=== PATIENT | female | born 1930 | race Caucasian/White ===

== ENCOUNTER 2017-11-16 09:29 | Inpatient (IN) | payer OTHER, MEDICARE ==
[2017-11-16] VITALS (15 sets, daily range): BP systolic 62–147; BP diastolic 38–62; PULSE 84–122; RESP 16–19; TEMP 92.8–94.1; O2SAT 0–100
[2017-11-16] MEDS ORDERED: ceFAZolin 2 GM PREMIX 0 ML ONE (09:35)
[2017-11-16] MEDS ORDERED: DIPHTH/TETANUS/ACEL PERTUSSIS (BOOSTER) 0.5 ML VIAL/PFS IM ONE (09:41)
[2017-11-16] MEDS ORDERED: ONDANSETRON HCL 4 MG/2 ML VIAL ONE (09:49)
[2017-11-16 09:58] LABS: AUTOMATED NEUTROPHIL # 10.9 TH/MM3 (1.8-7.7); BASOPHIL # 0.1 TH/MM3 (0-0.2); BASOPHIL % 0.5 % (0.0-2.0); EOSINOPHIL # 0.3 TH/MM3 (0-0.4); HEMATOCRIT 29.4 % (35.0-46.0); HEMOGLOBIN 9.9 GM/DL (11.6-15.3); LYMPH % 16.2 % (9.0-44.0); LYMPHOCYTE # 2.4 TH/MM3 (1.0-4.8); MEAN CELL VOLUME 97.8 FL (80.0-100.0); MEAN CORPUSCULAR HGB CONC 33.8 % (32.0-36.0); MEAN PLATELET VOLUME 6.8 FL (7.0-11.0); MONO % 6.6 % (0.0-8.0); NEUT % 74.7 % (16.0-70.0); PLATELET COUNT 363 TH/MM3 (150-450); RED BLOOD COUNT 3.01 MIL/MM3 (4.00-5.30); RED CELL DISTRIBUTION WIDTH 13.7 % (11.6-17.2); WHITE BLOOD COUNT 14.6 TH/MM3 (4.0-11.0)
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
[2017-11-16 10:08] LABS: INTERNATIONAL NORMALIZED RATIO 1.1 RATIO; PROTHROMBIN TIME - PATIENT 11.2 SEC (9.8-11.6)
[2017-11-16] MEDS ORDERED: IOHEXOL 350 MG/ML 10 ML VIAL (for RAD DIAG) IVCONTRAST ONE (10:15)
[2017-11-16] MEDS ORDERED: LIDOCAINE HCL 1% PF 30 ML VIAL ONE (10:15)
[2017-11-16] MEDS ORDERED: MIDAZOLAM HCL 5 MG/ML VIAL (1 ML) ONE (10:17)
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
--- NOTE | 2017-11-16 11:07 | RADRPT ---
EXAM DATE/TIME: 11/16/2017 10:34 [facility] COMPARISON: CHEST SINGLE AP, November 16, 2017, 9:29. INDICATIONS : Post chest tube insertion MEDICAL HISTORY : None. SURGICAL HISTORY : None. ENCOUNTER: Subsequent ACUITY: 1 day PAIN SCORE: Non-responsive. LOCATION: Bilateral chest FINDINGS: Chest tube in good position on the left. Minimal subcutis air. Right lung clear. Complete cardiome jase. Multiple left rib fractures. CONCLUSION: Chest and good position. No pneumothorax. Erickson Sierra MD FACR on November 16, 2017 at 11:05 Board Certified Radiologist. This report was verified electronically.
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
[2017-11-16 11:36] LABS: HEMOGLOBIN 11.7 GM/DL (11.6-15.3)
[2017-11-16] MEDS ORDERED: fentaNYL CITRATE 250 MCG/5 ML AMP ONE (11:43)
[2017-11-16] MEDS ORDERED: KETAMINE HCL 500 MG/10 ML VIAL ONE (11:44)
[2017-11-16] MEDS ORDERED: ROCURONIUM INJ 50 MG/5 ML SYRINGE IV PUSH ONE (12:00)
[2017-11-16] MEDS ORDERED: SODIUM CHLORID 0.9% 500 ML INJ 500 ML IV ONE (12:00)
[2017-11-16] MEDS ORDERED: PHENYLEPHRINE HCL 10 MG/ML VIAL IV ONE (12:00)
[2017-11-16] MEDS ORDERED: NORMOSOL R INJ 1,000 ML IV ONE (12:00)
[2017-11-16] MEDS ORDERED: LIDOCAINE HCL 1% PF 5 ML SYRINGE OTHER ONE (12:00)
[2017-11-16] MEDS ORDERED: LACTATED RINGER'S 1000 ML INJ 1,000 ML IV ONE (12:00)
[2017-11-16] MEDS ORDERED: DEXAMETHASONE SOD PHOS 4 MG/ML VIAL IV ONE (12:00)
[2017-11-16] MEDS ORDERED: ONDANSETRON HCL 4 MG/2 ML VIAL IV ONE (12:00)
[2017-11-16] MEDS ORDERED: PHENYLEPH/NS 1000 MCG/10 ML SYR IV ONE (12:00)
[2017-11-16] MEDS ORDERED: ceFAZolin 2 GM PREMIX 50 ML ONE (12:58)
[2017-11-16] MEDS ORDERED: GENTAMICIN SULFATE 80 MG/2 ML VIAL ONE (12:59)
[2017-11-16] MEDS ORDERED: SODIUM CHLORIDE 0.9% FLUSH 10 ML FLUSH IV FLUSH PRN (13:45)
[2017-11-16] MEDS ORDERED: ONDANSETRON HCL 4 MG/2 ML VIAL IV PUSH PRN (13:45)
[2017-11-16] MEDS ORDERED: CHLORHEXIDINE GLUCONATE 2 % 1 PACK (2 CLOTHS) TOP PRN (13:45)
[2017-11-16] MEDS ORDERED: RESP: ALBUTEROL 2.5 MG/IPRATROPIUM 0.5 MG NEB (PRN) NEB (13:45)
[2017-11-16] MEDS ORDERED: ENALAPRILAT 1.25 MG/ML VIAL IV PUSH PRN (13:45)
[2017-11-16] MEDS ORDERED: MISCELLANEOUS NURSING INFORMATION XX SCH (13:45)
[2017-11-16] MEDS ORDERED: SODIUM CHLOR 0.9% 1000 ML INJ 1,000 ML IV SCH ×2 (14:00→21:30)
[2017-11-16] MEDS ORDERED: MORPHINE SULFATE 2 MG/ML SYRINGE IV PUSH PRN (14:15)
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
[2017-11-16] MEDS ORDERED: MIDAZOLAM 100 MG/100 ML INJ 100 ML IV PRN (14:30)
[2017-11-16] MEDS ORDERED: fentaNYL DRIP 250 ML IV PRN (14:30)
[2017-11-16] MEDS: METHOCARBAMOL 500 MG TAB PO SCH ×2 (14:30→22:00)
[2017-11-16] MEDS ORDERED: LIDOCAINE HCL 5% PATCH T-DERMAL SCH (14:30)
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
[2017-11-16] MEDS ORDERED: PANTOPRAZOLE SODIUM 40 MG VIAL IVP SCH (15:00)
--- NOTE | 2017-11-16 15:03 | RADRPT ---
EXAM DATE/TIME: 11/16/2017 14:19 [facility] COMPARISON: No previous studies available for comparison. INDICATIONS : Left ankle ex fix. MEDICAL HISTORY : None. SURGICAL HISTORY : None. ENCOUNTER: Subsequent ACUITY: 1 day PAIN SCORE: Non-responsive. LOCATION: Left Ankle. FINDINGS: 2 digital images are submitted. These reveal grossly satisfactory ankle alignment presumably associat ed with placement of external fixator. CONCLUSION: Satisfactory operative appearance Santosh Bliss MD on November 16, 2017 at 15:01 Board Certified Radiologist. This report was verified electronically.
[2017-11-16] MEDS ORDERED: PROPOFOL 500 MG/50 ML INJ 50 ML ONE (15:28)
[2017-11-16] MEDS ORDERED: POTASSIUM CHLOR 40 MEQ PREMIX 100 ML IV PRN ×2 (15:30)
[2017-11-16] MEDS ORDERED: SODIUM PHOSPHATE INJ 30 MMOL in SODIUM CHLOR 0.9% 250 ML INJ 240 ML IV PRN (15:30)
[2017-11-16] MEDS ORDERED: POTASSIUM PHOSPHATE MONOBASIC 500 MG TAB PO/TUBE PRN (15:30)
[2017-11-16] MEDS ORDERED: MAGNESIUM SULFATE INJ 2 GM in SODIUM CHLORIDE 0.9% INJ 96 ML IV PRN (15:30)
[2017-11-16] MEDS ORDERED: MAGNESIUM OXIDE 400 MG TAB PO PRN (15:30)
[2017-11-16] MEDS ORDERED: POTASSIUM CHLORIDE 25 MEQ EFFERVESCENT TAB PO PRN ×2 (15:30)
[2017-11-16] MEDS ORDERED: POTASSIUM CHLOR 20 MEQ PREMIX 100 ML IV PRN ×2 (15:30)
[2017-11-16] MEDS ORDERED: POTASSIUM PHOSPHATE MONOBASIC 500 MG TAB PO PRN (15:30)
[2017-11-16] MEDS ORDERED: POTASSIUM PHOSPHATE INJ 30 MMOL in SODIUM CHLOR 0.9% 250 ML INJ 250 ML IV PRN (15:30)
[2017-11-16] MEDS ORDERED: MAGNESIUM SULFATE INJ 4 GM in SODIUM CHLORIDE 0.9% INJ 92 ML IV PRN (15:30)
[2017-11-16] MEDS ORDERED: fentaNYL 2,500 MCG/NS 250 ML IV PRN (16:00)
[2017-11-16] MEDS ORDERED: MIDAZOLAM 100 MG/NS 100 ML DRIP Premix IV PRN (16:00)
[2017-11-16] MEDS: RESP: ALBUTEROL 2.5 MG/IPRATROPIUM 0.5 MG NEB (SCH) NEB ×2 (16:00→20:47)
[2017-11-16] MEDS ORDERED: TERBUTALINE INJ 1 MG/ML AMP SQ PRN (16:00)
[2017-11-16] MEDS ORDERED: NOREPINEPHRINE-DEXTROSE DRIP 250 ML IV ONE (16:01)
[2017-11-16] MEDS: NOREPINEPHRINE 4 MG/D5W 250 ML IV PRN ×2 (16:05→21:10)
[2017-11-16] MEDS: PHENYLEPHRINE 40 MG in D5W 500 ML IV PRN ×2 (16:15→19:04)
[2017-11-16 16:36] LABS: HEMATOCRIT 27.4 % (35.0-46.0); HEMOGLOBIN 9.2 GM/DL (11.6-15.3); MEAN CELL VOLUME 93.6 FL (80.0-100.0); MEAN CORPUSCULAR HEMOGLOBIN 31.3 PG (27.0-34.0); MEAN CORPUSCULAR HGB CONC 33.4 % (32.0-36.0); MEAN PLATELET VOLUME 6.7 FL (7.0-11.0); PLATELET COUNT 122 TH/MM3 (150-450); RED BLOOD COUNT 2.93 MIL/MM3 (4.00-5.30); RED CELL DISTRIBUTION WIDTH 15.9 % (11.6-17.2); WHITE BLOOD COUNT 12.6 TH/MM3 (4.0-11.0)
[2017-11-16] MEDS ORDERED: SODIUM BICARBONATE 8.4% INJ 50 MEQ/50 ML SYR ONE (17:00)
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
[2017-11-16] MEDS ORDERED: SODIUM BICARBONATE 8.4% INJ 50 MEQ/50 ML SYR IV ONE (17:30)
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
[2017-11-16] MEDS ORDERED: PHENYLEPHRINE 40 MG in D5W 500 ML IV PRN (18:00)
--- NOTE | 2017-11-16 18:26 | MP ---
cc: Chente Edmondson MD DATE OF OPERATION: 11/16/2017 PREOPERATIVE DIAGNOSIS: Left-sided pneumothorax. POSTOPERATIVE DIAGNOSIS: Left-sided pneumothorax. PROCEDURE: Placement of left chest tube, 28-Bermudian. SURGEON: Chente Edmondson MD ANESTHESIA: 1% lidocaine. COMPLICATIONS: None. DESCRIPTION OF PROCEDURE: In the trauma bay, the patient's left chest was prepped and draped sterilely, 1% lidocaine was used to anesthetize the skin and subcutaneous tissue in the anterior axillary line at the level of the fourth interspace. A skin incision was made. Using blunt dissection, intercostal muscle was encountered. Using a Diana clamp, the pleural cavity was entered. There was a day of air. A 28-Bermudian chest tube was placed into the pleural space. It was connected to a Pleur-Evac. There was evacuation of blood on entering. The tube was secured to the chest using 0 silk sutures and occlusive dressing placed. The patient tolerated the procedure well. MD ZAIRE Weber/GHASSAN , 05:24 PM , 06:24 PM
[2017-11-16 18:38] LABS: HEMATOCRIT 36.3 % (35.0-46.0); HEMOGLOBIN 12.1 GM/DL (11.6-15.3); MEAN CELL VOLUME 90.2 FL (80.0-100.0); MEAN CORPUSCULAR HEMOGLOBIN 29.9 PG (27.0-34.0); MEAN CORPUSCULAR HGB CONC 33.2 % (32.0-36.0); MEAN PLATELET VOLUME 6.3 FL (7.0-11.0); PLATELET COUNT 71 TH/MM3 (150-450); RED BLOOD COUNT 4.03 MIL/MM3 (4.00-5.30); RED CELL DISTRIBUTION WIDTH 15.4 % (11.6-17.2)
[2017-11-16 18:51] LABS: INTERNATIONAL NORMALIZED RATIO 2.2 RATIO; PROTHROMBIN TIME - PATIENT 21.8 SEC (9.8-11.6)
[2017-11-16] MEDS ORDERED: SODIUM BICARBONATE 8.4% INJ 100 MEQ in WATER STERILE FOR INJ 1,000 ML IV SCH (19:15)
[2017-11-16] MEDS ORDERED: SODIUM BICARBONATE 8.4% SOLN 50 MEQ/50 ML VIAL IV ONE (19:15)
[2017-11-16] MEDS ORDERED: CHLORHEXIDINE 0.12% (ORAL KIT) 15 ML CUP MT SCH (20:00)
[2017-11-16] MEDS ORDERED: DOCUSATE SODIUM 100 MG CAP PO SCH (21:00)
[2017-11-16] MEDS ORDERED: MAGNESIUM HYDROXIDE SUSP 30 ML CUP PO SCH (21:00)
[2017-11-16] MEDS ORDERED: REMOVE OLD LIDOCAINE PATCH T-DERMAL SCH (21:00)
[2017-11-16] MEDS ORDERED: ceFAZolin 2 GM PREMIX 50 ML IV SCH (21:00)
[2017-11-16] MEDS ORDERED: SODIUM BICARBONATE 8.4% SOLN 50 MEQ/50 ML VIAL IV SCH (21:03)
[2017-11-16 21:23] LABS: HEMATOCRIT 30.3 % (35.0-46.0); HEMOGLOBIN 9.9 GM/DL (11.6-15.3)
[2017-11-17] MEDS ORDERED: IODIXANOL 320 MG/ML 50 ML VIAL (for RAD SPEC) I-ARTERIAL ONE (02:43)
[2017-11-17] MEDS ORDERED: CHLORHEXIDINE GLUCONATE 2 % 1 PACK (2 CLOTHS) TOP SCH (04:00)
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
== END 2017-11-17 02:44 | disposition expired | DRG 958 ==
LOC: NEPI 09:29 → NEDA 10:01 → EDBD 10:01 → N03B 15:09
PROVIDERS: ADMIT Surgery; ATTEND Surgery
PROC: 0QSK35Z Reposition Left Fibula with External Fixation Device, Percutaneous Approach (ICD-10-PCS; 2017-11-16)
PROC: 0QSH35Z Reposition Left Tibia with External Fixation Device, Percutaneous Approach (ICD-10-PCS; 2017-11-16)
PROC: 0T9B70Z Drainage of Bladder with Drainage Device, Via Natural or Artificial Opening (ICD-10-PCS; 2017-11-16)
PROC: 0W9B30Z Drainage of Left Pleural Cavity with Drainage Device, Percutaneous Approach (ICD-10-PCS; 2017-11-16)
PROC: 5A1935Z Respiratory Ventilation, Less than 24 Consecutive Hours (ICD-10-PCS; 2017-11-16)
PROC: 30233N1 Transfusion of Nonautologous Red Blood Cells into Peripheral Vein, Percutaneous Approach (ICD-10-PCS; 2017-11-16)
PROC: 04L43DZ Occlusion of Splenic Artery with Intraluminal Device, Percutaneous Approach (ICD-10-PCS; principal; 2017-11-16 13:11)
DX: S82.842B Displaced bimalleolar fracture of left lower leg, initial encounter for open fracture type I or II (principal); S36.031A Moderate laceration of spleen, initial encounter; S06.5X0A Traumatic subdural hemorrhage without loss of consciousness, initial encounter; S32.409A Unspecified fracture of unspecified acetabulum, initial encounter for closed fracture; E87.2 Acidosis; S22.5XXA Flail chest, initial encounter for closed fracture; S27.2XXA Traumatic hemopneumothorax, initial encounter; S82.202B Unspecified fracture of shaft of left tibia, initial encounter for open fracture type I or II; S22.20XA Unspecified fracture of sternum, initial encounter for closed fracture; S32.10XA Unspecified fracture of sacrum, initial encounter for closed fracture; S32.82XA Multiple fractures of pelvis without disruption of pelvic ring, initial encounter for closed fracture; S42.302A Unspecified fracture of shaft of humerus, left arm, initial encounter for closed fracture; S93.05XA Dislocation of left ankle joint, initial encounter; V43.52XA Car driver injured in collision with other type car in traffic accident, initial encounter; Y92.410 Unspecified street and highway as the place of occurrence of the external cause; Z66 Do not resuscitate
CPT/HCPCS: 36247; 36248; 36430; 37244; 70450; 71045; 71260; 72125; 72129; 72132; 72170; 73600; 74177; 75726; 75736; 75774; 76000; 76937; 80048; 82805; 84100; 85014; 85018; 85025; 85027; 85610; 85730; 86850; 86900; 86901; 86920; 90715; 94002; 94664; C1713; C1769; C1887; C9113; J0690; J1100; J1580; J2250; J2370; J2405; J3010; J7030; J7040; J7060; J7120; L0172; L8699; P9016; Q9967